=== PATIENT | female | born 1985 | race Caucasian/White ===

== ENCOUNTER 2019-07-02 16:00 | Emergency (ER) | payer MEDICAID ==
[~2019-07-02 16:00] MED LIST: CIPRO500 MG PO; HYDROCODONE-AP1 EAC6 PO; HYDROCODONE-APA1 TA1 PO; IBUPROFEN 800800 MG PO; PAXIL10 MG; PERCOCET 5-3251 EACH PO; ZOFRAN ODT4 MG PO
== END 2019-07-02 16:52 | disposition left against medical advice (07) ==
LOC: M.ERS 16:00
DX: Z53.21 Procedure and treatment not carried out due to patient leaving prior to being seen by health care provider (principal)